=== PATIENT | female | born 1995 | race Caucasian/White ===

== ENCOUNTER 2019-04-23 19:06 | Emergency (ER) | payer OTHER ==
[2019-04-23 19:16] VITALS: BMI 19.3
--- NOTE | 2019-04-23 19:17 | PDOC ---
Rapid Medical Evaluation Chief Complaint: Pain, Acute Time Seen by Provider: 04/23/19 19:08 Medical Evaluation: 04/23/19 19:16 Patient c/o: upper abd pain x months, no fever or diarrhea, no urinary complaints Patient on brief exam: tenderness to bul upper quad, no cva tenderness, no lower abd tenderness Patient ordered for: labs and urine Patient to proceed to the ED Discharge Disposition - Diagnosis Abdominal pain - Discharge Dispostion Condition at time of disposition: Stable - Referrals - Patient Instructions - Post Discharge Activity
[2019-04-23] MEDS ORDERED: MAG HYDROX/AL HYDROX/SIMETH 30 ML UNIT-DOSE CUP PO ONE (21:04)
[2019-04-23] MEDS ORDERED: FAMOTIDINE 20 MG/50 ML IVPB 20 MG/50 ML MG IVPB ONE ×2 (21:04→21:34)
[2019-04-23] MEDS ORDERED: ONDANSETRON 4 MG/2 ML VIAL IVPUSH ONE (21:04)
[2019-04-23] MEDS ORDERED: ACETAMINOPHEN 1000 MG/100 ML VIAL (NON FORMULARY) IVPB ONE (21:04)
[2019-04-23] MEDS ORDERED: SODIUM CHLORIDE 0.9% 500 ML INFUS.BAG IV ONE (21:04)
--- NOTE | 2019-04-23 21:31 | PDOC ---
Documentation entered by Cayla Wilson SCRIBE, acting as scribe for Olesya Moore MD. Olesya Moore MD: This documentation has been prepared by the Steve barnes Brenda, SCRIBE, under my direction and personally reviewed by me in its entirety. I confirm that the documentation accurately reflects all work, treatment, procedures, and medical decision making performed by me. History of Present Illness - General Chief Complaint: Pain, Acute Stated Complaint: STOMACH PAIN Time Seen by Provider: 04/23/19 19:08 History Source: Patient Exam Limitations: No Limitations - History of Present Illness Initial Comments: 04/23/19 21:28 23 YOF with h/o gastritis, ulcer, ovarian cysts presenting with upper abdominal pain x 1 week. associated with nausea and decreased PO intake. occasional diarrhea, but no bloody BM. no urinary sx, f/c, cp, sob, respiratory sx. abdominal pain x 1-2 months, but has not had follow up with physician/GI as she recently got insurance no sick contacts. denies triggers or suspicious food intake. no travel. similar sx previously attributable to ulcer/gastritis. occ ETOh use, daily smoker, but no binge drinking or drug use. no surgeries. 04/24/19 09:04 Past History - Past Medical History Allergies/Adverse Reactions: Allergies Allergy/AdvReac Type Severity Reaction Status Date / Time No Known Allergies Allergy Verified 04/23/19 21:28 Home Medications: Ambulatory Orders Ondansetron [Zofran Odt -] 4 mg SL TID PRN #9 od.tablet 04/23/19 - Suicide/Smoking/Psychosocial Hx Smoking History: Current every day smoker Number of Cigarettes Smoked Daily: 3 Information on smoking cessation initiated: Yes Hx Alcohol Use: Yes (Social) Drug/Substance Use Hx: Yes (MJ) Review of Systems - Review of Systems Able to Perform ROS?: Yes Comments:: 04/23/19 21:30 Constitutional: no fevers or chills. HEENT: no headache or dizziness. No congestion. CVS: no cp or syncope. Resp: no sob. No cough. Gastrointestinal: +abdominal pain. +nausea; no vomiting or diarrhea or bloody BM. Genitourinary: no urinary sx, hematuria. no dysuria, urgency or frequency. MUSCULOSKELETAL: No joint pain and swelling. No neck or back pain. SKIN: no redness or skin changes, no discharge, no rash. No wounds. Hematologic: no easy bruising/bleeding. NEUROLOGIC: No headache, dizziness, LOC or altered mental status. No weakness, numbness or tingling. Allergic/Immunologic: no allergies All other systems reviewed and negative, or as documented in HPI. 04/24/19 09:02 *Physical Exam - Vital Signs Last Vital Signs Temp Pulse Resp BP Pulse Ox 99.2 F 90 20 130/82 97 04/23/19 19:12 04/23/19 19:12 04/23/19 19:12 04/23/19 19:12 04/23/19 19:12 - Physical Exam Comments: 04/23/19 21:31 General: Well appearing, awake and alert, NAD. HEENT: NCAT, PERRL, EOMI, clear conjunctiva, anicteric, moist mucus membranes, clear oropharynx, no oral lesions.. Neck: neck supple, FROM Resp: CTAB, normal and even respirations, no respiratory distress CVS: RRR, no murmurs, 2+ peripheral pulses throughout, no peripheral edema Abdomen: soft, +epigastric and periumbilical TTP. no peritoneal signs. no CVAT. Back: nontender, normal inspection and ROM MSK: no edema, C[place] x4, ROM intact. No clubbing or cyanosis. normal bulk and tone. Neuro: alert, no focal neuro deficits. Skin: warm and well perfused, cap refill <2 sec, normal color ED Treatment Course - LABORATORY CBC & Chemistry Diagram: 04/23/19 21:43 04/23/19 19:17 Medical Decision Making - Medical Decision Making 04/24/19 09:02 hpi as documented VS reviewed wnl, no fever DDX PUD, Gastritis, ulcer, GERD, pancreatitis, hepatitis, viral syndrome, renal colic labs and lytes normal neg for blood or infection on UA lipase and LFTs wnl given pepcid, GI cocktail, IVF and zofran, feels improved no flank tenderness, no hematuria to suggest stone no smith's sign no lower quad tenderness. more diffuse and epigastric/upper abd pain sx improving discharge with zofran prn , supportive care, GI and PCP followup. pt just got insurance, will give several referrals for EGD/further workup of chronic abd pain. *DC/Admit/Observation/Transfer Diagnosis at time of Disposition: Abdominal pain - Discharge Dispostion Disposition: HOME Condition at time of disposition: Stable Decision to Admit order: No - Prescriptions Prescriptions: Ondansetron [Zofran Odt -] 4 mg SL TID PRN #9 od.tablet PRN Reason: Nausea - Referrals Referrals: Elissa Hilton MD [Primary Care Provider] - Miguelito Alexander DO [Staff Physician] - Rimma Mancilla MD [Staff Physician] - Jay Frank MD [Staff Physician] - - Patient Instructions Printed Discharge Instructions: DI for Gastritis, DI for Abdominal Pain-Adult, GERD Diet Additional Instructions: 1) Please follow-up with your primary care doctor in the next 1-2 days. Please call tomorrow for for any urgent issues. nurse first assist referrals given. 2) You were given a copy of the tests performed today. Please bring the results with you and review them with your primary care doctor. Your laboratory / results were normal, 3) If you have any worsening of symptoms or any other concerns please return to the ED immediately. Return if worsening symptoms including fevers, headache, vomiting, visual or hearing disturbances, abdominal pain, chest pain, shortness of breath, syncope, dehydration, inability to take things by mouth/vomiting, altered mental status, or worsening concerning symptoms. 4) Please continue taking your home medications as directed. your medications on discharge include Zofran every 8 hours as needed for nausea/vomiting. do not drink alcohol with your medications. you can also take protonix daily for inhibiting the stomach acid maalox every 6 hours with food for heartburn and pain as needed, take with food. Stay well hydrated and rest adequately. Make an appointment. If you cannot follow-up with your primary care doctor please return to the ED - Post Discharge Activity Forms/Work/School Notes: Back to Work
[2019-04-23] MEDS ORDERED: ACETAMINOPHEN INJECTION 100 ML IVPB ONE (21:33)
[2019-04-23] MEDS ORDERED: ONDANSETRON 4 MG/2 ML VIAL ONE (21:34)
[2019-04-23] MEDS ORDERED: MAG HYDROX/AL HYDROX/SIMETH 30 ML UNIT-DOSE CUP ONE (21:34)
[2019-04-23 22:05] LABS: PH,URINE >= 9.0 (5.0-8.0); URINE APPEARANCE TURBID; URINE BILIRUBIN NEGATIVE (NEGATIVE); URINE COLOR YELLOW; URINE GLUCOSE (UA) NEGATIVE (NEGATIVE); URINE KETONE NEGATIVE (NEGATIVE); URINE LEUK ESTERASE NEGATIVE (NEGATIVE); URINE NITRITE NEGATIVE (NEGATIVE); URINE PROTEIN TRACE (NEGATIVE)
[2019-04-23 22:07] LABS: BASO % 0.4 % (0-2.0); HEMATOCRIT 37.1 % (32.4-45.2); HEMOGLOBIN 12.3 GM/dL (10.7-15.3); LYMPH % 30.1 % (8-40); MCH 31.3 pg (25.7-33.7); MCHC 33.3 g/dl (32.0-36.0); MEAN CELL VOLUME 93.9 fl (80-96); MEAN PLT VOLUME 8.1 fl (7.5-11.1); MONO % 9.3 % (3.8-10.2); NEUT % 57.2 % (42.8-82.8); PLATELET COUNT 200 K/MM3 (134-434); RBC 3.95 M/mm3 (3.60-5.2); RDW 13.9 % (11.6-15.6); WHITE BLOOD COUNT 5.8 K/mm3 (4.0-10.0)
[2019-04-23 22:08] LABS: HCG,QUALITATIVE URINE Negative
[2019-04-23 22:22] LABS: ALBUMIN 3.9 g/dl (3.4-5.0); BILIRUBIN,TOTAL 0.5 mg/dL (0.2-1); BLOOD UREA NITROGEN 16.2 mg/dL (7-18); CALCIUM 9.3 mg/dL (8.5-10.1); CREATININE 0.9 mg/dL (0.55-1.3); POTASSIUM 4.3 mmol/L (3.5-5.1); TOT PROT 7.2 g/dl (6.4-8.2)
[2019-04-23 23:17] VITALS: BP 114/65; PULSE 60; TEMP 98.7
== END 2019-04-23 23:36 | disposition home or self-care (01) ==
LOC: JER 19:06
PROC: 3E033GC Introduction of Other Therapeutic Substance into Peripheral Vein, Percutaneous Approach (ICD-10-PCS; principal; 2019-04-23)
PROC: 3E033GC Introduction of Other Therapeutic Substance into Peripheral Vein, Percutaneous Approach (ICD-10-PCS; 2019-04-23)
PROC: 3E033NZ Introduction of Analgesics, Hypnotics, Sedatives into Peripheral Vein, Percutaneous Approach (ICD-10-PCS; 2019-04-23)
PROC: 3E033GC Introduction of Other Therapeutic Substance into Peripheral Vein, Percutaneous Approach (ICD-10-PCS; 2019-04-23)
DX: R10.9 Unspecified abdominal pain (principal)
CPT/HCPCS: 36415; 80053; 81003; 83690; 84703; 85025; 96365; 96375; 99282-25; J0131

== ENCOUNTER 2019-12-11 21:07 | Emergency (ER) | payer OTHER ==
[2019-12-11 21:28] VITALS: TEMP 98; BMI 18.9
--- NOTE | 2019-12-11 23:13 | PDOC ---
Attending Attestation - Resident Resident Name: Epi Erwin - ED Attending Attestation I have performed the following: I have examined & evaluated the patient, The case was reviewed & discussed with the resident, I agree w/resident's findings & plan - HPI HPI: 12/11/19 23:14 see resident hpi - Physicial Exam PE: 12/11/19 23:14 see resident exam - Medical Decision Making 12/11/19 23:14 24-year-old female with a draining abscess to the left upper arm No history of IVDA reported Wound care, DC on clindamycin Wound care instructions provided, 48-hour return for wound check
--- NOTE | 2019-12-11 23:14 | PDOC ---
History of Present Illness - General Chief Complaint: Wound Stated Complaint: LEFT ARM CYST Time Seen by Provider: 12/11/19 23:02 - History of Present Illness Initial Comments: 12/11/19 23:22 The patient is a 24 year old female with no significant PMH who presents for evaluation of a left arm abscess. The patient reports a small "pimple" beginning 1-2 weeks ago that she began picking at and has been getting progressively larger. She notes that over the past few days, it has been draining more purulent fluid prompting her presentation to the ED for further evaluation. She reports that she has had abscesses in the past as well. She otherwise denies fevers, chills, SOB, chest pain, nausea, vomiting, abdominal pain, or changes with urination or bowel movements. Past History - Past Medical History Allergies/Adverse Reactions: Allergies Allergy/AdvReac Type Severity Reaction Status Date / Time No Known Allergies Allergy Verified 12/11/19 21:28 Home Medications: Ambulatory Orders Ondansetron [Zofran Odt -] 4 mg SL TID PRN #9 od.tablet 04/23/19 Clindamycin [Cleocin -] 450 mg PO Q8H #62 capsule 12/11/19 COPD: No - Psycho Social/Smoking Cessation Hx Smoking History: Never smoked Have you smoked in the past 12 months: No Number of Cigarettes Smoked Daily: 3 Information on smoking cessation initiated: No Hx Alcohol Use: No Drug/Substance Use Hx: No Review of Systems - Review of Systems Comments:: 12/11/19 23:28 Constitutional: No fevers, chills, fatigue, malaise HEENT: No Rhinorrhea, nasal congestion, visual changes Cardiovascular: No chest pain, syncope, palpitations, lightheadedness Respiratory: No Cough, SOB, Hemoptysis, Gastrointestinal: No Abdominal pain, Nausea, Vomiting, Constipation, Diarrhea, Melena Genitourinary: No Dysuria, Frequency, Urgency, Hesitancy, Hematuria, Flank pain Musculoskeletal: No Myalgia, arthralgia Skin: Left arm abscess. No rashes, itching, bruising, pallor Neurologic: No Headache, Dizziness, Numbness, Weakness, or Tingling Psychiatric: No Hallucinations. No SI or HI *Physical Exam - Vital Signs Last Vital Signs Temp Pulse Resp BP Pulse Ox 98.0 F 74 18 115/65 100 12/11/19 21:24 12/11/19 21:24 12/11/19 21:24 12/11/19 21:24 12/11/19 21:24 - Physical Exam 12/11/19 23:28 General Appearance: Nourished. No Apparent Distress HEENT: No Pharyngeal Erythema, Tonsillar Exudate, Tonsillar Erythema Neck: No Cervical Lymphadenopathy Respiratory/Chest: Lungs Clear, Normal Breath Sounds. No Crackles, Rales, Rhonchi, Wheezing Cardiovascular: Regular Rhythm, Regular Rate. No Murmur, Gallops, Rubs Gastrointestinal/Abdominal: Normal Bowel Sounds, Soft. No Guarding, Rebound, Tenderness Musculoskeletal: No CVA Tenderness Extremity: Normal Capillary Refill Integumentary: 2cm left upper arm open abscess draining purulent fluid. Normal Color, Dry, Warm Neurologic: Fully Oriented, Alert, Normal Mood/Affect, Normal Response, Medical Decision Making - Medical Decision Making 12/11/19 23:29 The patient is a 24 year old female with no significant PMH who presents for evaluation of a left arm abscess. Given the patient's history and physical exam , it is likely the patient's symptoms are due to an abscess without surrounding cellulitis. The patient's abscess is already open and draining and dose not require further I&D. We are comfortable discharging the patient home in stable condition on Clindamycin with instructions to return to the ED in 2-3 days for a wound check. Patient made aware of impression and plan, return precautions discussed including but not limited to worsening pain or symptoms, fevers, or signs of infection, chest pain, respiratory distress, inability to tolerate oral intake, dehydration, syncope, or neurologic changes. The patient is to follow up with PMD as recommended within 1 week, follow up information provided and the patient will call for an appointment. The patient is to take medications as instructed for duration of time and continue with supportive care , avoid triggers and precipitants. Patient is safe for outpatient follow-up. Discharge - Discharge Information Problems reviewed: Yes Clinical Impression/Diagnosis: Abscess Condition: Stable Disposition: HOME - Admission No - Additional Discharge Information Prescriptions: Clindamycin [Cleocin -] 450 mg PO Q8H #62 capsule - Follow up/Referral - Patient Discharge Instructions Patient Printed Discharge Instructions: DI for Skin Abscess Additional Instructions: 1) Please follow-up with your primary care doctor in the next 2-3 days. Please call tomorrow to schedule a follow up appointment. If you cannot follow up with your doctor within 1 week please return to the Emergency Department for any urgent issues. 2) Please return to the ED in 2-3 days for a wound check to ensure that your wound is healing properly. 3) If you have any worsening of symptoms or any other concerns, please return to the ER immediately. Return if worsening symptoms including fevers, headache, vomiting, visual or hearing disturbances, abdominal pain, chest pain, shortness of breath, syncope, dehydration, inability to take things by mouth/vomiting, altered mental status, or worsening concerning symptoms. 4) Please continue taking your home medications as directed. Your medications on discharge include Clindamycin . Side effects may include upset stomach, abdominal pain, vomiting, or diarrhea. Do not drink alcohol with your medications. - Post Discharge Activity
[2019-12-11 23:56] VITALS: BP 129/73; PULSE 67
== END 2019-12-11 23:54 | disposition home or self-care (01) ==
LOC: JER 21:07
DX: L02.414 Cutaneous abscess of left upper limb (principal); Z72.0 Tobacco use
CPT/HCPCS: 99283-25